=== PATIENT | male | born 1990 | race African-American/Black ===

== ENCOUNTER 2024-02-19 23:49 | Emergency (ER) | payer SELFPAY ==
[2024-02-20 00:11] LABS: BASOPHILS ABSOLUTE AUTO 0.05 K/uL (0.00-0.20); BASOPHILS PERCENT AUTO 0.6 % (0.0-1.0); EOSINOPHILS ABSOLUTE AUTO 0.17 K/uL (0.00-0.45); HEMATOCRIT 38.6 % (42.0-52.0); HEMOGLOBIN 13.2 g/dL (14.0-18.0); IMMATURE GRAN ABSOLUTE AUTO 0.03 K/uL (0.00-0.05); IMMATURE GRAN PERCENT AUTO 0.4 % (0.0-0.4); LYMPHOCYTES ABSOLUTE AUTO 3.23 K/uL (1.00-4.80); LYMPHOCYTES PERCENT AUTO 38.5 % (24.0-44.0); MEAN CORPUSCULAR HEMOGLOBIN 25.7 pg (28.0-32.0); MEAN CORPUSCULAR HGB CONC 34.2 g/dL (32.0-36.0); MEAN CORPUSCULAR VOLUME 75.1 fL (83.0-99.0); MEAN PLATELET VOLUME 10.9 fL (9.4-12.4); MONOCYTES ABSOLUTE AUTO 0.79 K/uL (0.00-0.80); MONOCYTES PERCENT AUTO 9.4 % (0.0-8.0); NEUTROPHILS ABSOLUTE AUTO 4.13 K/uL (1.80-7.70); NEUTROPHILS PERCENT AUTO 49.1 % (41.0-71.0); PLATELET COUNT,PLT 227 K/uL (150-400); RED BLOOD CELL COUNT 5.14 M/uL (4.52-5.90)
[2024-02-20] MEDS: Sodium Chloride 0.9% 1,000 ML IV ONE (00:26)
[2024-02-20] MEDS: Famotidine 20 MG/2 ML SDV IVPUSH ONE (00:27)
[2024-02-20] MEDS: Sucralfate Suspension 1 GM/10 ML Cup PO ONE (00:27)
[2024-02-20] MEDS: Sodium Chloride 0.9% 2.5 ML Syringe FLUSH PRN (00:30)
[2024-02-20] MEDS: Sodium Chloride 0.9% 10 ML Syringe FLUSH PRN (00:31)
[2024-02-20 00:43] LABS: A/G RATIO 0.8 (0.9-1.6); ACETAMINOPHEN <2.0 ug/mL; ALANINE AMINOTRANSFERASE,ALT 37 IU/L (14-63); ALBUMIN 3.6 g/dL (3.4-5.0); ALKALINE PHOSPHATASE 76 U/L (46-116); ASPARTATE AMNIOTRANSFERASE,AST 20 IU/L (15-37); BILIRUBIN TOTAL 0.6 mg/dL (0.2-1.0); BLOOD UREA NITROGEN,BUN 21 mg/dL (7.0-18.0); CALCIUM 8.5 mg/dL (8.5-10.1); CARBON DIOXIDE,CO2 25.2 mmol/L (21.0-32.0); CHLORIDE,CL 104 mmol/L (98-107); CREATININE 0.9 mg/dL (0.8-1.3); EST CRCL DRUG DOSING (CG) 140.83 mL/min; ETHANOL BLOOD MEDICAL <3 mg/dL; GLUCOSE RANDOM 95 mg/dL (74-106); LIPASE 32 U/L (16-77); POTASSIUM,K 3.7 mmol/L (3.5-5.1); PROTEIN TOTAL,TP 8.1 g/dL (6.4-8.2); SALICYLATE 0.2 mg/dL (0.0-20.0); SODIUM,NA 141 mmol/L (136-148); TSH ULTRASENSITIVE 2.16 uIU/mL (0.36-3.74)
[2024-02-20 00:46] LABS: ESTIMATED GFR 116 mL/min (>60)
[2024-02-20 00:46] LABS: APPEARANCE,URINE CLEAR; BILIRUBIN,URINE NEGATIVE (NEGATIVE); COLOR,URINE YELLOW; GLUCOSE,URINE NEGATIVE (NEGATIVE); KETONES,URINE NEGATIVE (NEGATIVE); LEUKOCYTE ESTERASE,URINE NEGATIVE (NEGATIVE); NITRITE,URINE NEGATIVE (NEGATIVE); OCCULT BLOOD,URINE NEGATIVE (NEGATIVE); PROTEIN,URINE NEGATIVE (NEGATIVE); UROBILINOGEN,URINE 0.2 EU/dL (<2.0)
[2024-02-20 00:56] LABS: AMPHETAMINES SCREEN, URINE NEGATIVE (CUTOFF=500); BARBITURATE SCREEN,URINE NEGATIVE (CUTOFF=200); BENZODIAZEPINES SCREEN,URINE NEGATIVE (CUTOFF=150); BUPRENORPHINE SCREEN,URINE NEGATIVE (CUTOFF=10); METHADONE SCREEN, URINE NEGATIVE (CUTOFF=200); METHAMPHETAMINES SCREEN, URINE NEGATIVE (CUTOFF=500); OXYCODONE SCREEN,URINE NEGATIVE (CUT0FF=100); PCP SCREEN,URINE NEGATIVE (CUTOFF=25); THC SCREEN,URINE 20 NG/ML NEGATIVE (CUTOFF=50)
[2024-02-20] MEDS: Iopamidol 755 MG/ML 500 ML Multipack Bottle IVPUSH ONE (01:49)
== END 2024-02-20 02:56 | disposition home or self-care (01) ==
LOC: MW.ED 23:49
DX: R07.9 Chest pain, unspecified (principal); R10.30 Lower abdominal pain, unspecified; M79.644 Pain in right finger(s)
CPT/HCPCS: 36415; 71046; 73140; 74177; 80053; 80143; 80179; 80305; 80307; 81003; 83690; 84443; 84484; 85025; 85379; 93005; 96361; 96374; 99285; A9270; J3490; J7030; Q9967; 93010; 99284

== ENCOUNTER 2024-02-25 12:22 | Emergency (ER) | payer SELFPAY ==
[2024-02-25 13:15] LABS: APPEARANCE,URINE CLEAR; BILIRUBIN,URINE NEGATIVE (NEGATIVE); COLOR,URINE YELLOW; GLUCOSE,URINE NEGATIVE (NEGATIVE); KETONES,URINE NEGATIVE (NEGATIVE); LEUKOCYTE ESTERASE,URINE NEGATIVE (NEGATIVE); NITRITE,URINE NEGATIVE (NEGATIVE); OCCULT BLOOD,URINE TRACE-INTACT (NEGATIVE); PROTEIN,URINE NEGATIVE (NEGATIVE)
[2024-02-25 13:24] LABS: BACTERIA,URINE RARE (NEGATIVE); EPITHELIAL CELLS,URINE RARE (NONE-FEW); RBC,URINE 0-2 (0-2/HPF); WBC,URINE 0-1 (0-5/HPF)
== END 2024-02-25 15:18 | disposition left against medical advice (07) ==
LOC: MW.ED 12:22
DX: N50.812 Left testicular pain (principal); N50.811 Right testicular pain; R05.9 Cough, unspecified; R31.9 Hematuria, unspecified; Z75.8 Other problems related to medical facilities and other health care
CPT/HCPCS: 76870; 76870-26; 81001; 93976; 93976-26; 99283; 99284